=== PATIENT | male | born 1995 | race Caucasian/White ===

== ENCOUNTER → 2022-10-09 | Outpatient (CLI) | payer OTHER | LOC: LAB 16:42 | DX: R10.9 Unspecified abdominal pain (principal); Z20.9 Contact with and (suspected) exposure to unspecified communicable disease ==

== ENCOUNTER → 2023-06-14 | Outpatient (CLI) | payer OTHER | LOC: LAB 11:20 | DX: R30.0 Dysuria (principal); R35.0 Frequency of micturition; Z20.2 Contact with and (suspected) exposure to infections with a predominantly sexual mode of transmission ==

== ENCOUNTER → 2024-05-26 | Outpatient (CLI) | payer OTHER ==
[2024-05-26 12:21] LABS: BASO # 0.02 K/mm3 (0.02-0.10); EOS # 0.14 K/mm3 (0.04-0.40); EOS % 1.6 % (0.0-4.0); HEMATOCRIT 46.6 % (42.0-52.0); HEMOGLOBIN 15.4 g/dL (13.5-18.0); LYMPH# 2.75 K/mm3 (1.50-4.00); MEAN CELL VOLUME 86 fl (78-100); MEAN CORPUSCULAR HEMOGLOBIN 28 pg (27-31); MEAN CORPUSCULAR HGB CONC 33 g/dL (33-37); MEAN PLATELET VOLUME 10.7 fl (7.4-10.4); MONO # 0.59 K/mm3 (0.20-0.80); NEU # 5.14 K/mm3 (1.40-6.50); PLATELET COUNT 236 K/mm3 (130-400); RED BLOOD COUNT 5.44 M/mm3 (4.20-5.60); RED CELL DISTRIBUTION WIDTH 12.1 % (11.5-14.5); WHITE BLOOD COUNT 8.7 K/mm3 (4.8-10.8)
[2024-05-26 12:30] LABS: ALBUMIN 4.6 g/dL (3.5-5.0)
[2024-05-26 12:31] LABS: CALCIUM 9.7 mg/dL (8.3-10.5)
[2024-05-26 12:33] LABS: TOTAL PROTEIN 7.3 g/dL (6.4-8.3)
[2024-05-26 12:34] LABS: TOTAL BILIRUBIN 0.2 mg/dL (0.2-1.2)
== END ==
LOC: LAB 12:04
PROVIDERS: Physician Assistant
DX: E78.5 Hyperlipidemia, unspecified (principal); R10.9 Unspecified abdominal pain

== ENCOUNTER → 2024-11-03 | Outpatient (CLI) | payer OTHER ==
[2024-11-03 08:52] LABS: ALBUMIN 4.3 g/dL (3.5-5.0)
[2024-11-03 08:53] LABS: CALCIUM 9.1 mg/dL (8.3-10.5)
[2024-11-03 08:54] LABS: TOTAL PROTEIN 7.3 g/dL (6.4-8.3)
[2024-11-03 08:56] LABS: TOTAL BILIRUBIN 0.4 mg/dL (0.2-1.2)
== END ==
LOC: LAB 08:33
PROVIDERS: Physician Assistant
DX: E78.2 Mixed hyperlipidemia (principal)